=== PATIENT | male | born 2000 | race Caucasian/White ===

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

== ENCOUNTER 2020-09-06 18:11 | Emergency (ER) | payer OTHER ==
[2020-09-06 18:42] VITALS: BP 143/81; PULSE 92; TEMP 98.2; BMI 28.1
[2020-09-06 21:30] LABS: BASO % 0.5 % (0-2.0); EOS % 2.5 % (0-4.5); HEMATOCRIT 46.4 % (35.4-49); HEMOGLOBIN 15.8 GM/dL (11.7-16.9); LYMPH % 25.5 % (8-40); MCH 29.7 pg (25.7-33.7); MCHC 34.2 g/dl (32.0-35.9); MEAN PLT VOLUME 9.4 fl (7.5-11.1); MONO % 8.8 % (3.8-10.2); NEUT % 62.7 % (42.8-82.8); PLATELET COUNT 239 K/MM3 (134-434); RBC 5.33 M/mm3 (4.00-5.60); RDW 13.2 % (11.9-15.9); WHITE BLOOD COUNT 9.2 K/mm3 (4.0-10.0)
[2020-09-06 21:32] LABS: PH,URINE 6.5 (5.0-8.0); URINE APPEARANCE CLEAR; URINE BILIRUBIN NEGATIVE (NEGATIVE); URINE COLOR YELLOW; URINE GLUCOSE (UA) NEGATIVE (NEGATIVE); URINE KETONE NEGATIVE (NEGATIVE); URINE LEUK ESTERASE NEGATIVE (NEGATIVE); URINE NITRITE NEGATIVE (NEGATIVE); URINE PROTEIN NEGATIVE (NEGATIVE)
[2020-09-06 21:39] LABS: POTASSIUM 3.8 mmol/L (3.5-5.1)
[2020-09-06 21:41] LABS: ALBUMIN 4.7 g/dl (3.4-5.0); BLOOD UREA NITROGEN 13.4 mg/dL (7-18); CALCIUM 9.2 mg/dL (8.5-10.1)
[2020-09-06 21:45] LABS: CREATININE 0.8 mg/dL (0.55-1.3)
[2020-09-06 21:46] LABS: BILIRUBIN,TOTAL 0.8 mg/dL (0.2-1)
[2020-09-06] MEDS ORDERED: KETOROLAC TROMETHAMINE 30 MG/1 ML VIAL IM ONE (22:30)
[2020-09-06] MEDS ORDERED: KETOROLAC TROMETHAMINE 30 MG/1 ML VIAL ONE (22:55)
[2020-09-06] MEDS ORDERED: KETOROLAC TROMETHAMINE 30 MG/1 ML VIAL IVPUSH ONE (22:58)
== END 2020-09-06 23:03 | disposition home or self-care (01) ==
LOC: JER 18:11
PROC: 3E0233Z Introduction of Anti-inflammatory into Muscle, Percutaneous Approach (ICD-10-PCS; principal; 2020-09-06)
PROC: 3E0333Z Introduction of Anti-inflammatory into Peripheral Vein, Percutaneous Approach (ICD-10-PCS; 2020-09-06)
DX: R07.81 Pleurodynia (principal)
CPT/HCPCS: 36415; 71046-TC-FY; 71101-TC-RT-FY; 80053; 81003; 85025; 99285-25

== ENCOUNTER 2021-04-08 16:12 | Emergency (ER) | payer OTHER ==
[2021-04-08 16:44] VITALS: BP 140/98; PULSE 104; TEMP 98.2; BMI 29.0
[2021-04-08] MEDS ORDERED: SODIUM CHLORIDE 1,000 ML IV STA (17:16)
[2021-04-08 17:41] LABS: BASO % 0.3 % (0-2.0); EOS % 1.2 % (0-4.5); HEMATOCRIT 46.9 % (35.4-49); LYMPH % 18.2 % (8-40); MCH 29.1 pg (25.7-33.7); MCHC 34.1 g/dl (32.0-35.9); MEAN CELL VOLUME 85.5 fl (80-96); MEAN PLT VOLUME 9.1 fl (7.5-11.1); MONO % 7.8 % (3.8-10.2); NEUT % 72.5 % (42.8-82.8); PLATELET COUNT 237 10^3/uL (134-434); RBC 5.49 M/mm3 (4.00-5.60); RDW 13.4 % (11.9-15.9); WHITE BLOOD COUNT 10.2 K/mm3 (4.0-10.0)
[2021-04-08 17:49] LABS: INR 1.04 (0.83-1.09); PROTHROMBIN TIME (PATIENT) 12.8 SEC (9.7-13.0)
[2021-04-08 18:01] LABS: CHLORIDE 104 mmol/L (98-107); SODIUM 136 mmol/L (136-145)
[2021-04-08 18:03] LABS: CALCIUM 9.8 mg/dL (8.5-10.1)
[2021-04-08 18:05] LABS: ALBUMIN 4.9 g/dl (3.4-5.0); ANION GAP 6 MMOL/L (8-16); BLOOD UREA NITROGEN 15.7 mg/dL (7-18); CO2 27 mmol/L (21-32); GLUCOSE,RANDOM 107 mg/dL (74-106); MAGNESIUM 2.2 mg/dL (1.8-2.4)
[2021-04-08 18:07] LABS: CREATININE 0.9 mg/dL (0.55-1.3); SGOT/AST 22 U/L (15-37); SGPT/ALT 61 U/L (13-61)
[2021-04-08 18:10] LABS: ALK PHOS 86 U/L (45-117); BILIRUBIN,TOTAL 0.9 mg/dL (0.2-1); TOT PROT 8.2 g/dl (6.4-8.2)
== END 2021-04-08 19:06 | disposition home or self-care (01) ==
LOC: JER 16:12
PROC: 3E0337Z Introduction of Electrolytic and Water Balance Substance into Peripheral Vein, Percutaneous Approach (ICD-10-PCS; principal; 2021-04-08)
DX: R00.2 Palpitations (principal)
CPT/HCPCS: 36415; 71046-TC-FY; 80053; 82550; 83735; 84443; 84484; 85025; 85610; 93005; 93010; 99285-25

== ENCOUNTER 2021-07-11 17:45 | Emergency (ER) | payer OTHER ==
[2021-07-11 18:06] VITALS: BP 145/86; PULSE 108; TEMP 98.6; BMI 28.2
[2021-07-11] MEDS ORDERED: MECLIZINE HCL 25 MG TABLET (FP) PO ONE (20:22)
[2021-07-11] MEDS ORDERED: MECLIZINE HCL 25 MG TABLET (FP) ONE (20:29)
== END 2021-07-11 21:04 | disposition home or self-care (01) ==
LOC: JERFT 17:45
DX: R42 Dizziness and giddiness (principal); R07.9 Chest pain, unspecified
CPT/HCPCS: 71046-TC-FY; 93005; 93010; 99284-25

== ENCOUNTER 2022-06-09 17:24 | Emergency (ER) | payer OTHER ==
[2022-06-09 17:28] VITALS: BP 134/86; PULSE 80; RESP 18; TEMP 97; BMI 29.0
[2022-06-09] MEDS ORDERED: KETOROLAC TROMETHAMINE 60 MG/2 ML VIAL IM ONE (18:53)
[2022-06-09] MEDS ORDERED: KETOROLAC TROMETHAMINE 30 MG/1 ML VIAL ONE (18:55)
== END 2022-06-09 19:14 | disposition home or self-care (01) ==
LOC: JERFT 17:24
PROC: 3E023GC Introduction of Other Therapeutic Substance into Muscle, Percutaneous Approach (ICD-10-PCS; principal; 2022-06-09)
DX: K08.89 Other specified disorders of teeth and supporting structures (principal)
CPT/HCPCS: 99284-25

== ENCOUNTER 2023-01-06 22:29 | Emergency (ER) | payer OTHER ==
[2023-01-06 22:36] VITALS: BP 163/99; PULSE 110; RESP 20; TEMP 98.6; BMI 28.1
[2023-01-06] MEDS ORDERED: SODIUM CHLORIDE 0.9% 500 ML INFUS.BAG IV ONE (23:08)
[2023-01-06] MEDS ORDERED: MAG HYDROX/AL HYDROX/SIMETH 30 ML UNIT-DOSE CUP PO ONE (23:09)
[2023-01-06] MEDS ORDERED: ONDANSETRON 4 MG/2 ML VIAL IVPUSH ONE (23:09)
[2023-01-06] MEDS ORDERED: PANTOPRAZOLE SODIUM 40 MG VIAL IVPUSH ONE (23:09)
[2023-01-06] MEDS ORDERED: MAG HYDROX/AL HYDROX/SIMETH 30 ML UNIT-DOSE CUP ONE (23:17)
[2023-01-06] MEDS ORDERED: ONDANSETRON 4 MG/2 ML VIAL ONE (23:18)
[2023-01-06] MEDS ORDERED: PANTOPRAZOLE SODIUM 40 MG VIAL ONE (23:19)
[2023-01-07 01:06] LABS: BASO % 0.4 % (0-2.0); HEMATOCRIT 44.7 % (35.4-49); HEMOGLOBIN 15.7 GM/dL (11.7-16.9); LYMPH % 23.3 % (8-40); MCH 29.4 pg (25.7-33.7); MCHC 35.2 g/dl (32.0-35.9); MEAN CELL VOLUME 83.5 fl (80-96); MEAN PLT VOLUME 9.5 fl (7.5-11.1); MONO % 7.5 % (3.8-10.2); NEUT % 67.8 % (42.8-82.8); PLATELET COUNT 254 10^3/uL (134-434); RBC 5.35 M/mm3 (4.00-5.60); RDW 13.2 % (11.9-15.9); WHITE BLOOD COUNT 9.4 K/mm3 (4.0-10.0)
[2023-01-07 01:27] LABS: ALBUMIN 4.6 g/dl (3.4-5.0); BLOOD UREA NITROGEN 11.9 mg/dL (7-18); CALCIUM 9.9 mg/dL (8.5-10.1); MAGNESIUM 2.1 mg/dL (1.8-2.4)
[2023-01-07 01:30] LABS: CREATININE 0.8 mg/dL (0.55-1.3)
[2023-01-07 01:31] LABS: TOT PROT 8.3 g/dl (6.4-8.2)
== END 2023-01-07 01:53 | disposition home or self-care (01) ==
LOC: JER 22:29
PROC: 3E033GC Introduction of Other Therapeutic Substance into Peripheral Vein, Percutaneous Approach (ICD-10-PCS; principal; 2023-01-06)
PROC: 3E033GC Introduction of Other Therapeutic Substance into Peripheral Vein, Percutaneous Approach (ICD-10-PCS; 2023-01-06)
DX: R10.13 Epigastric pain (principal)
CPT/HCPCS: 36415; 76705-TC; 80053; 83690; 83735; 84443; 85025; 93005; 93010; 99285-25